=== PATIENT | male | born 1980 | race African-American/Black ===

== ENCOUNTER 2016-11-27 08:35 | Emergency (ER) | payer OTHER ==
[~2016-11-27] VITALS: Ht 175.3 cm; Wt 98.0 kg
[~2016-11-27 08:35] MED LIST: ALBUTEROL2.5 MG/31 INH; AZITHROMYCIN 2250 MG PO; BACTRIM DS TAB1 EACH PO; CEFTIN 250 MG250 MG PO; FLONASE 0.05%50 MCG NASAL; FLOVENT DISKUS50 MCG; MEDROLDOSEPACK PO; PREDNISONE 10 M10 MG PO; PREDNISONE 20 M20 M1 PO; PREDNISONE 20 M20 MG PO; PROAIR HFA8.5 GM; PROAIR HFA8.5 GM INH; PROVENTIL HFA6.7 G1 INH; TYLENOL325 MG PO
[2016-11-27] MEDS ORDERED: PREDNISONE 20 M20 MG PO (10:29)
[2016-11-27] MEDS ORDERED: MOBIC15 MG PO (10:29)
== END 2016-11-27 11:43 ==
LOC: ER 08:35
DX: J45.901 Unspecified asthma with (acute) exacerbation (principal); J20.8 Acute bronchitis due to other specified organisms